=== PATIENT | female | born 1990 | race Caucasian/White ===

== ENCOUNTER 2018-03-14 11:47 | Emergency (ER) | payer OTHER ==
[~2018-03-14] VITALS: Ht 170.2 cm; Wt 72.5 kg
[~2018-03-14 11:47] MED LIST: [UNRECOGNIZED DRUG - OTHER] PO
[2018-03-14] MEDS ORDERED: POTASSIUM GLUC550 M1 PO (11:58)
[2018-03-14] MEDS ORDERED: PROZAC10 M2 PO (11:58)
[2018-03-14 13:53] VITALS: BP 95/61
== END 2018-03-14 13:50 | disposition home or self-care (01) ==
LOC: ED 11:47
DX: S06.0X0A Concussion without loss of consciousness, initial encounter (principal); S22.018A Other fracture of first thoracic vertebra, initial encounter for closed fracture; S01.81XA Laceration without foreign body of other part of head, initial encounter; M54.2 Cervicalgia; W10.8XXA Fall (on) (from) other stairs and steps, initial encounter; Y92.009 Unspecified place in unspecified non-institutional (private) residence as the place of occurrence of the external cause; Z79.899 Other long term (current) drug therapy

== ENCOUNTER 2018-04-11 21:07 | Emergency (ER) | payer OTHER ==
[~2018-04-11] VITALS: Ht 167.6 cm; Wt 71.4 kg
[~2018-04-11 21:07] MED LIST changes: +POTASSIUM GLUC550 M1 PO; +PROZAC10 M2 PO
[2018-04-11] MEDS ORDERED: PROVENTIL0.09 MG/A1 IH (21:17)
[2018-04-11 21:52] LABS: EOS # 0.2 (0.04-0.40); EOS % 4.4 % (1.0-5.0); HEMATOCRIT 36.9 % (37.0-47.0); HEMOGLOBIN 12.4 g/dL (12.5-16.0); LYMPH# 1.5 (1.50-4.00); MEAN CELL VOLUME 98 fl (78-100); MEAN CORPUSCULAR HEMOGLOBIN 33 pg (27-31); MEAN CORPUSCULAR HGB CONC 34 g/dL (33-37); MEAN PLATELET VOLUME 10.5 fl (7.4-10.4); MONO # 0.5 (0.20-0.80); NEU # 2.6 (1.40-6.50); PLATELET COUNT 143 K/mm3 (130-400); RED BLOOD COUNT 3.75 M/mm3 (4.10-5.30); RED CELL DISTRIBUTION WIDTH 13.4 % (11.5-14.5); WHITE BLOOD COUNT 4.8 K/mm3 (4.8-10.8)
[2018-04-11 22:02] LABS: ALBUMIN 3.8 g/dL (3.5-5.0); CALCIUM 8.8 mg/dL (8.4-10.2); POTASSIUM 3.5 mmol/L (3.6-5.0); TOTAL BILIRUBIN 0.3 mg/dL (0.2-1.3); TOTAL PROTEIN 6.2 g/dL (6.3-8.2)
[2018-04-11 23:28] VITALS: BP 82/40
== END 2018-04-11 23:28 | disposition home or self-care (01) ==
LOC: ED 21:07
PROVIDERS: Family Medicine
DX: G40.909 Epilepsy, unspecified, not intractable, without status epilepticus (principal); T50.3X6A Underdosing of electrolytic, caloric and water-balance agents, initial encounter; Z91.138 Patient's unintentional underdosing of medication regimen for other reason; Z79.899 Other long term (current) drug therapy
CPT/HCPCS: J1885; J3480